=== PATIENT | female | born 1930 | race Caucasian/White ===

== ENCOUNTER 2017-03-18 05:56 | Emergency (ER) | payer MEDICARE ==
[~2017-03-18] VITALS: Ht 165.1 cm; Wt 59.5 kg
[~2017-03-18 05:56] MED LIST: ASPI81TA3 PO; CAL MAG ZINC PO; DIPH50C PO; FOCUS PO; IND40 PO; LORA10CA PO; METO25TA6 PO; MULT-1073 PO; NITR0.4T6 SL; PRAV20TA2 PO; [UNRECOGNIZED DRUG - CODE] PO
[2017-03-18 06:02] VITALS: BP 147/80; PULSE 87; RESP 16; O2SAT 98
--- NOTE | 2017-03-18 06:11 | ED.REPORT ---
HPI-Abd Pain F 40 and Over Date of Service Mar 18, 2017 ED Provider: Arnaldo Joseph MD 87 year old female with a history of UTI presents to the ER accompanied by her complaining of nausea and vomiting since yesterday. Last bout of vomiting was last night around 23:00, per . Patient denies chest pain, fever, diarrhea, hematemesis, and hematochezia. Symptoms are similar to those associated with prior UTI. No recent exposure to ill contacts. Nursing Notes Stated Complaint: POSS UTI,VOMITING Chief Complaint: Female Abdominal Pain Nursing Notes Reviewed: Yes Allergies: Coded Allergies: codeine (Verified Allergy, Unknown, 03/18/17) Scheduled ([Mitesh Mag Zinc]) 1 TAB PO DAILY ([Focus]) 1 TAB PO DAILY Aspirin Chew (Aspirin Chew) 81 Mg Chew 81 MG PO DAILY Cephalexin (Keflex) 500 Mg Capsule 500 MG PO QID Diphenhydramine Hcl (Benadryl) 50 Mg Capsule 25 MG PO Q6H Loratadine (Claritin) 10 Mg Capsule 10 MG PO DAILY Metoprolol Tartrate (Metoprolol Tartrate) 25 Mg Tablet 25 MG PO BID Pravastatin (Pravastatin) Unknown Strength Tablet Unknown Dose PO DAILY Propranolol-Expunged Drug, Do Not Renew! (Propranolol-Expunged Drug, Do Not Renew!) 40 Mg Tab 80 MG PO DAILY Take dose in evening Scheduled PRN Ondansetron ODT (Zofran ODT) 4 Mg Tablet 4 MG PO Q4H PRN PRN For Nausea Miscellaneous Medications Multivits-Min/FA/Lycopene/Lut (Centrum Silver Tablet) 1 Each Tablet 1 EACH PO Nitroglycerin SL (Nitroglycerin SL) 0.4 Mg Tab.subl 0.4 MG SL Om-3/Dha/Epa/Fish Oil/Vit D3 ([place]-3 + Vitamin D3 Tab Chew) 1 Each Tab.chew 1 EACH PO General Time Seen by MD: 06:05 Chief Complaint Vomiting moderate Hx Obtained From: Patient, Spouse Arrived By: Walk-in Sudden in Onset?: No Onset Occurred: Yesterday Symptom Duration: Since onset Associated with: Denies: Diarrhea, Fever, Hematochezia Pertinent Negative: Pt denies other symptoms Similar Sx Previous: Yes Past Medical History Past Medical History [place] Reports: Cancer, Hypertension Reports: Urinary tract infection Past Surgical History Cardiac cath Smoking History Never Smoker Social History Alcohol Use: In recovery Other Social History: Good social support, Ambulatory Status Independent Review of Systems Constitutional: Denies: Chills, Fever Respiratory: Denies: Non-productive cough, Shortness of breath Cardiovascular: Denies: Chest pain GI: Reports: Nausea, Vomiting, Denies: Abdominal pain, Diarrhea, Hematemesis, Hematochezia Female: Denies: Dysuria Complete sys rev & neg: except as marked. Physical Exam Vital Signs Vital Signs (First) Date Time Temp Pulse Resp B/P Pulse Ox O2 Delivery O2 Flow Rate FiO2 03/18/17 06:02 36.0 87 16 147/80 98 Room Air Initial VS: Reviewed Head / Eyes: Atraumatic, Normocephalic Neck: Supple, Non-tender, Full range of motion Extremities: Vascular intact, Neuro intact, No swelling, No tenderness Skin: Warm, Dry, No cyanosis Neurologic: Alert, Oriented, Nonfocal General/Constitutional: Awake, Alert, Well appearing, Well developed, Well nourished Respiratory / Chest: Breath sounds NL, Breath sounds = bilat, No respiratory distress, No rales, No rhonchi, No wheezing, No stridor Cardiovascular: Heart rate NL, Regular rhythm, Heart sounds NL, Peripheral circulation NL Heart Sounds / Murmur: Positive: Systolic murmur present.. (holosystolic murmur , left upper sternal border) Abdomen: Soft, Non-tender, No guarding, No rebound, No distention Back: Inspection NL, Non-tender, No CVA tenderness Interpretation & Diagnostics Lab Results Interpretation Test 03/18/17 07:00 Hold Urine Received (Received) Re-Eval/Medical Decision Med Decision/Clinical Course 87-year-old female history of UTIs presenting with nausea. No diarrhea. She reports this is her typical presentation for a UTI and this is what she is suspecting. Last vomiting last night non-biliary nonbilious. No abdominal pain. Vital signs stable. Patient declined labs. Her urine does show evidence of UTI. We will treat with oral antibiotics, Keflex. Return precautions given regarding same symptoms pyelonephritis, no worsening nausea vomiting, abdominal pain, back pain, any other new or worsening symptoms. Source of Hx: Old records Re-Evaluation/Progress : Time of Eval: 07:33 Re-Evaluation/Progress Note: Patient's nausea is improved. Discussed lab results and plan to discharge. Patient is amenable to the plan. Return precautions given. All other questions addressed. Counseled Regarding: Diagnosis, Lab results, Need for follow-up, When/why to return to ED Discharge & Departure Primary Impression: UTI (urinary tract infection) Disposition: Home Discharge Condition All VS Reviewed: Yes Condition: Stable Patient Instructions: Urinary Tract Infection in Women (DC) Additional Instructions: Your urinalysis indicates that you have a urinary tract infection. Take the prescribed Keflex as directed. It is important that you finish the entire course of this antibiotic medication. Take Zofran as directed for nausea. Return to the ER if you develop any worsening or concerning symptoms. Referrals: Álvaro Solano MD (PCP) Veronica Attestation Portions of this note were transcribed by Winston Herrera. I, Dr. Joseph, personally performed the history, physical exam and medical decision-making; I reviewed and confirmed the accuracy of the information in the transcribed note. Signed by: Veronica Truong, 03/18/2017 at 07:34 copies to: Álvaro Solano MD, Ben M MD Mar 18, 2017 06:11 WINSTON HERRERA Mar 18, 2017 06:48
[2017-03-18] MEDS ORDERED: CEPH-512 PO (07:25)
[2017-03-18] MEDS ORDERED: ONDA4TAB9 PO (07:25)
[2017-03-18 07:48] VITALS: BP 145/64; PULSE 78; RESP 18; O2SAT 98
[2017-03-18 07:50] VITALS: BP 145/64; PULSE 78; RESP 18; O2SAT 98
== END 2017-03-18 07:30 | disposition home or self-care (01) ==
LOC: SED 05:56
DX: N39.0 Urinary tract infection, site not specified (principal); I10 Essential (primary) hypertension; I25.2 Old myocardial infarction; Z85.9 Personal history of malignant neoplasm, unspecified; Z79.82 Long term (current) use of aspirin; Z79.899 Other long term (current) drug therapy; Z88.5 Allergy status to narcotic agent